=== PATIENT | female | born 1950 | race Caucasian/White ===

== ENCOUNTER 2017-08-04 17:15 | Emergency (ER) | payer OTHER, MEDICARE ==
[2017-08-04] MEDS ORDERED: Morphine 10 MG/ML Syringe IVPUSH ONE ×2 (17:35→20:00)
[2017-08-04] MEDS ORDERED: Ondansetron 4 MG/2 ML SDV IV ONE (17:35)
[2017-08-04] MEDS ORDERED: Diphtheria,Pertussis(Acell),Tetanus Vaccine 0.5 ML SDV IM ONE (17:35)
[2017-08-04] MEDS ORDERED: Sodium Chloride 0.9% 1,000 ML IV ONE (17:35)
[2017-08-04] MEDS ORDERED: Sodium Chloride 0.9% 10 ML Syringe FLUSH PRN (17:36)
[2017-08-04] MEDS ORDERED: Iopamidol 612 MG/ML 50 ML SDV IVPUSH ONE (17:43)
[2017-08-04] MEDS ORDERED: Iopamidol 612 MG/ML 75 ML Bottle IVPUSH ONE (17:43)
[2017-08-04 18:04] LABS: ANION GAP 15.2; CHLORIDE,CL 105 mmol/L (101-111); SODIUM,NA 137 mmol/L (135-145)
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
== END 2017-08-04 20:27 ==
LOC: DL.ED 17:15
DX: S22.41XA Multiple fractures of ribs, right side, initial encounter for closed fracture (principal); S22.20XA Unspecified fracture of sternum, initial encounter for closed fracture; S82.831A Other fracture of upper and lower end of right fibula, initial encounter for closed fracture; S20.219A Contusion of unspecified front wall of thorax, initial encounter; N18.6 End stage renal disease; Z88.5 Allergy status to narcotic agent; Z88.8 Allergy status to other drugs, medicaments and biological substances; Z79.82 Long term (current) use of aspirin; Z79.899 Other long term (current) drug therapy; V43.52XA Car driver injured in collision with other type car in traffic accident, initial encounter
CPT/HCPCS: 36415; 70450; 71260; 72125; 73610; 74177; 80053; 82150; 83690; 84484; 85025; 85610; 85730; 90471; 90715; 93005; 96361; 96374; 96375; 96376; 99285; G0480; J2270; J2405; J7030; Q9967

== ENCOUNTER 2017-08-13 18:19 | Emergency (ER) | payer MEDICARE, OTHER ==
[2017-08-13 18:33] LABS: CHLORIDE,CL 102 mmol/L (101-111); SODIUM,NA 132 mmol/L (135-145)
[2017-08-13 18:34] VITALS: BP 176/83
[2017-08-13] MEDS ORDERED: Acetaminophen/oxyCODONE 325-5 MG Tab PO ONE (18:35)
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
[2017-08-13] MEDS ORDERED: Ondansetron 4 MG Tab.DIS PO ONE (19:42)
[2017-08-13] MEDS ORDERED: Morphine 10 MG/ML Syringe IVPUSH ONE (19:43)
[2017-08-13] MEDS ORDERED: Morphine 10 MG/ML Syringe IM ONE (19:51)
== END 2017-08-13 20:00 ==
LOC: DL.ED 18:19
DX: S22.20XA Unspecified fracture of sternum, initial encounter for closed fracture (principal); S22.41XD Multiple fractures of ribs, right side, subsequent encounter for fracture with routine healing; R79.1 Abnormal coagulation profile; I12.9 Hypertensive chronic kidney disease with stage 1 through stage 4 chronic kidney disease, or unspecified chronic kidney disease; N18.3 Chronic kidney disease, stage 3 (moderate); Z79.82 Long term (current) use of aspirin; Z79.899 Other long term (current) drug therapy; Z88.5 Allergy status to narcotic agent; Z88.8 Allergy status to other drugs, medicaments and biological substances; X58.XXXA Exposure to other specified factors, initial encounter
CPT/HCPCS: 36415; 80053; 85025; 85379; 96372; 99284; A9270; J2270

== ENCOUNTER 2020-03-31 14:10 | Emergency (ER) | payer MEDICARE, OTHER ==
[2020-03-31 14:18] VITALS: BP 155/97; PULSE 81
[2020-03-31] MEDS ORDERED: Sodium Chloride 0.9% 10 ML Syringe FLUSH PRN (14:28)
[2020-03-31 15:35] LABS: ANION GAP 24.7 mEq/L (7-13)
[2020-03-31] MEDS ORDERED: Heparin Sodium 5,000 Units/ML Vial IVPUSH ONE (15:59)
[2020-03-31] MEDS ORDERED: Heparin Sodium/0.45% NaCl 25,000 UNITS/500 ML BAG IV SCH (16:00)
[2020-03-31] MEDS ORDERED: Aspirin 81 MG Tab.Chew PO ONE (16:12)
--- NOTE | 2020-03-31 16:20 | EDM.PDOC ---
Scribed by Marla Machado 03/31/20 1527 for Ramakrishna Han MD ED HPI GENERAL MEDICAL PROBLEM - General Chief Complaint: General Stated Complaint: AMBULANCE Time Seen by Provider: 03/31/20 14:12 Source of Information: Reports: Patient, EMS, EMS Notes Reviewed, RN, RN Notes Reviewed History Limitations: Reports: No Limitations - History of Present Illness INITIAL COMMENTS - FREE TEXT/NARRATIVE: Patient arrives to ED by [facility] stating that she sat in a chair too long. She tried to stand, weak and helped herself to the ground. She was on the ground 5 hours. She has no pain at this time. She did not hit her head. No loss of consciousness or neurologic symptoms. No seizure-like activity. No incontinence or tongue biting. Her friend found her on the ground. She does hemodialysis at home. Her last one was on and is due today. She does produce urine. Denies chest pain, edema, palpitations, or syncope. Onset: Today Duration: Constant Severity: Moderate Improves with: Reports: None Worsens with: Reports: None Associated Symptoms: Reports: No Other Symptoms - Related Data Allergies Allergy/AdvReac Type Severity Reaction Status Date / Time codeine Allergy Airway Verified 03/31/20 14:24 Tightness lisinopril Allergy Cough Verified 03/31/20 14:24 chlorhexadine dressing Allergy Itching Uncoded 03/31/20 14:24 Home Meds: Home Meds Aspirin [Ecotrin] 81 mg PO DAILY 06/06/14 [History] Cyanocobalamin (Vitamin B-12) [Cyanocobalamin Injection] 1,000 mcg IM ASDIRECTED 06/06/14 [History] Folic Acid 1 mg PO Q2D 06/06/14 [History] Lidocaine 5% [Lidoderm 5%] 1 patch TOP DAILY PRN 06/06/14 [History] Pantoprazole [Protonix] 40 mg PO DAILY 06/06/14 [History] Biotin [Bryant Biotin] 5,000 mcg PO DAILY 06/07/14 [History] Metoprolol Tartrate [Lopressor] 25 mg PO DAILY 06/07/14 [History] Quogue-3 Fatty Acids [Quogue-3] 1,000 mg PO DAILY 06/07/14 [History] Acetaminophen [Non-Aspirin Extra Strength] 2 tab PO Q6H PRN 08/13/17 [History] Amitriptyline [Elavil] 2 tab PO BEDTIME 08/13/17 [History] Calcitriol 1.5 mcg PO DAILY 08/13/17 [History] Cyclobenzaprine HCl 1 tab PO Q8H PRN 08/13/17 [History] Docusate Sodium/Sennosides [Senokot-S] 2 tab PO BID PRN 08/13/17 [History] Ferrous Sulfate 1 tab PO DAILY 08/13/17 [History] Gabapentin [Neurontin] 1 cap PO BID 08/13/17 [History] Isosorbide Mononitrate [Imdur] 60 mg PO DAILY 08/13/17 [History] Methylphenidate HCl [Methylphenidate ER] 1 tab PO DAILY 08/13/17 [History] Ranitidine HCl 1 tab PO BID 08/13/17 [History] Red Yeast Rice 2 cap PO DAILY 08/13/17 [History] Ubidecarenone [Co Q-10] 2 cap PO DAILY 08/13/17 [History] Zinc Gluconate-Zinc Picolinate [Zinc] 2 cap PO DAILY 08/13/17 [History] oxyCODONE HCl [Oxycodone HCl] 1 tab PO Q4H PRN 08/13/17 [History] Past Medical History HEENT History: Reports: Other (See Below) Other HEENT History: Benign Cyst -Throat -taken out 1975 Cardiovascular History: Reports: Hypertension Gastrointestinal History: Reports: Other (See Below) Other Gastrointestinal History: Stomach bypass - twice 1981; 1987 Genitourinary History: Reports: Renal Disease, Other (See Below) Other Genitourinary History: Stage 3 kidney disease 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 PROJECT COORDINATOR History: Reports: Other (See Below) Other SENIOR PROJECT 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 Denies: Fever, Chills, Diaphoresis HEENT: Reports: No Symptoms Respiratory: Reports: No Symptoms Cardiovascular: Reports: No Symptoms GI/Abdominal: Reports: No Symptoms : Reports: No Symptoms Musculoskeletal: Reports: No Symptoms Skin: Reports: No Symptoms Neurological: Reports: No Symptoms ED EXAM, GENERAL - Physical Exam Exam: See Below Exam Limited By: No Limitations General Appearance: Alert, WD/WN, No Apparent Distress Eye Exam: Bilateral Eye: EOMI, PERRL Ears: Normal External Exam, Normal Canal Nose: Normal Inspection, Normal Mucosa, No Blood Throat/Mouth: Other (dry mouth) Head: Atraumatic Neck: Normal Inspection, Supple, Non-Tender, Full Range of Motion Respiratory/Chest: No Respiratory Distress, Lungs Clear, Normal Breath Sounds, No Accessory Muscle Use, Chest Non-Tender Cardiovascular: Normal Peripheral Pulses, Regular Rate, Rhythm, No Edema, No Gallop, No JVD, No Murmur, No Rub GI/Abdominal: Normal Bowel Sounds, Soft, Non-Tender, No Organomegaly, No Distention, No Abnormal Bruit, No Mass (Female) Exam: Deferred Rectal (Female) Exam: Deferred Back Exam: No: Paraspinal Tenderness, Vertebral Tenderness Extremities: Normal Inspection Neurological: Alert, Oriented, CN II-XII Intact, Normal Cognition, Normal Gait, Normal Reflexes, No Motor/Sensory Deficits Skin Exam: Erythema (over coccyx. Abrasion on left hip. ) #1 Interpretation EKG Date: 03/31/20 Time: 15:13 Rhythm: Other (sinus rhythm) Rate (Beats/Min): 77 [place]: Normal P-Wave: Present QRS: Other (nonspecific intraventricular conduction delay) ST-T: Normal QT: Normal Course - Vital Signs Last Recorded V/S: Last Vital Signs Temp 97.3 F 03/31/20 14:16 Pulse 81 03/31/20 14:16 Resp 20 03/31/20 14:16 BP 155/97 H 03/31/20 14:16 Pulse Ox 98 03/31/20 14:16 - Orders/Labs/Meds Orders: Active Orders 24 hr Category Date Time Status EKG 12 Lead [EKG Documentation Completion] [RC] STAT Care 03/31/20 14:30 Active Peripheral IV Care [RC] . DIRECTED Care 03/31/20 14:29 Active Chest 1V Frontal [CR] Stat Exams 03/31/20 16:00 Taken UA RFX JULIANA AND CULT IF INDIC [URIN] Stat Lab 03/31/20 14:29 Ordered Heparin Sodium/0.45% NaCl [Heparin 25,000 Units in 1/2 Med 03/31/20 16:00 Active NS 500 ML] 25,000 units in 500 ml IV TITRATE Sodium Chloride 0.9% [Saline Flush] Med 03/31/20 14:28 Active 10 ml FLUSH ASDIRECTED PRN Peripheral IV Insertion Adult [OM.PC] Stat Oth 03/31/20 14:29 Ordered Medication Orders Heparin Sodium/Sodium Chloride (Heparin 25,000 Units In 1/2 Ns 500 Ml) 25,000 units in 500 mls @ 22.11 mls/hr IV TITRATE WILBERT; Protocol Sodium Chloride (Saline Flush) 10 ml FLUSH ASDIRECTED PRN PRN Reason: Keep Vein Open Last Admin: 03/31/20 16:07 Dose: 10 ml Documented by: ABI Labs: Laboratory Tests 03/31/20 03/31/20 03/31/20 Range/Units 14:58 14:58 14:58 WBC 12.8 H (5.0-10.0) 10^3/uL RBC 4.96 (4.2-5.4) 10^6/uL Hgb 14.7 D (12.0-16.0) g/dL Hct 44.9 (37.0-47.0) % MCV 90.5 D (80-100) fL MCH 29.6 (27.0-34.0) pg MCHC 32.7 L (33.0-35.0) g/dL Plt Count 202 D (150-450) 10^3/uL Neut % (Auto) 89.1 H (42.2-75.2) % Lymph % (Auto) 4.0 L (20.5-50.1) % Stanley % (Auto) 6.2 (2-8) % Eos % (Auto) 0.2 L (1.0-3.0) % Baso % (Auto) 0.5 (0.0-1.0) % Sodium 143 (136-145) mmol/L Potassium 3.7 (3.5-5.1) mmol/L Chloride 101 (98-107) mmol/L Carbon Dioxide 21 (21-32) mmol/L Anion Gap 24.7 H (7-13) mEq/L BUN 90 H (7-18) mg/dL Creatinine 7.96 H* (0.55-1.02) mg/dL Est Cr Clr Drug Dosing 5.20 mL/min Estimated GFR (MDRD) 5 BUN/Creatinine Ratio 11.3 (No establ ref range) Glucose 119 H (74-99) mg/dL Lactic Acid 1.5 (0.4-2.0) mmol/L Calcium 9.3 (8.5-10.1) mg/dL Phosphorus 5.5 H (2.6-4.7) mg/dL Magnesium 2.8 H (1.8-2.4) mg/dL Total Bilirubin 0.7 (0.2-1.0) mg/dL AST 38 H (15-37) U/L ALT 36 (14-59) U/L Alkaline Phosphatase 102 (46-116) U/L Creatine Kinase 512 H (16-191) U/L Troponin I 0.705 H* (0.000-0.056) ng/mL B-Natriuretic Peptide 828 H (0-100) pg/ml Total Protein 7.0 (6.4-8.2) g/dL Albumin 4.1 (3.4-5.0) g/dL Globulin 2.9 Albumin/Globulin Ratio 1.4 Meds: Medications Generic Name Dose Route Start Last Admin Trade Name Frejulianna PRN Reason Stop Dose Admin Heparin Sodium/Sodium Chloride 25,000 units in 500 mls @ 22.11 mls/hr 03/31/20 16:00 Heparin 25,000 Units In 1/2 Ns 500 Ml IV TITRATE WILBERT Protocol 12 UNITS/KG/HR Sodium Chloride 10 ml 03/31/20 14:28 03/31/20 16:07 Saline Flush FLUSH 10 ml ASDIRECTED PRN Administration Keep Vein Open Discontinued Medications Generic Name Dose Route Start Last Admin Trade Name Freq PRN Reason Stop Dose Admin Aspirin 324 mg 03/31/20 16:12 Aspirin PO 03/31/20 16:13 ONETIME ONE Heparin Sodium (Porcine) 4,000 units 03/31/20 15:59 03/31/20 16:06 Heparin Sodium IVPUSH 03/31/20 16:00 4,000 units .BOLUS ONE Administration - Re-Assessments/Exams Free Text/Narrative Re-Assessment/Exam: 03/31/20 15:28 I saw and evaluated the patient. Discussed with resident and agree with residents findings and plan as documented in the residents note. Resident does not have EMR access for documentation. Departure - Departure Time of Disposition: 16:18 Disposition: DC/Tfer to Acute Hospital 02 Condition: Fair, Serious Clinical Impression: Non-ST elevated myocardial infarction (non-STEMI), ESRD on hemodialysis, Generalized weakness - Discharge Information *PRESCRIPTION DRUG MONITORING PROGRAM REVIEWED*: Not Applicable *COPY OF PRESCRIPTION DRUG MONITORING REPORT IN PATIENT JOSÉ MIGUEL: Not Applicable Forms: ED Department Discharge, Interfacility Transfer [facility] Sepsis Event Note (ED) - Focused Exam Vital Signs: Vital Signs Temp Pulse Resp BP Pulse Ox 03/31/20 14:16 97.3 F 81 20 155/97 H 98 - My Orders Last 24 Hours: My Active Orders 03/31/20 14:28 Sodium Chloride 0.9% [Saline Flush] 10 ml FLUSH ASDIRECTED PRN 03/31/20 14:29 Peripheral IV Care [RC] . DIRECTED UA RFX JULIANA AND CULT IF INDIC [URIN] Stat Peripheral IV Insertion Adult [OM.PC] Stat 03/31/20 14:30 EKG 12 Lead [EKG Documentation Completion] [RC] STAT 03/31/20 16:00 Chest 1V Frontal [CR] Stat Heparin Sodium/0.45% NaCl [Heparin 25,000 Units in 1/2 NS 500 ML] 25,000 units in 500 ml IV TITRATE - Assessment/Plan Last 24 Hours: My Active Orders 03/31/20 14:28 Sodium Chloride 0.9% [Saline Flush] 10 ml FLUSH ASDIRECTED PRN 03/31/20 14:29 Peripheral IV Care [RC] . DIRECTED UA RFX JULIANA AND CULT IF INDIC [URIN] Stat Peripheral IV Insertion Adult [OM.PC] Stat 03/31/20 14:30 EKG 12 Lead [EKG Documentation Completion] [RC] STAT 03/31/20 16:00 Chest 1V Frontal [CR] Stat Heparin Sodium/0.45% NaCl [Heparin 25,000 Units in 1/2 NS 500 ML] 25,000 units in 500 ml IV TITRATE I have read and agree with the documentation that has been completed regarding this visit. By signing this record, I attest that the documentation was completed in my physical presence and is an accurate record of the encounter.
--- NOTE | 2020-03-31 16:21 | CR ---
PROCEDURE INFORMATION: Exam: XR Chest, 1 View Exam date and time: 03/31/2020 4:04 PM Age: 69 years old Clinical indication: Other: Chest pain TECHNIQUE: Imaging protocol: XR of the chest Views: 1 view. COMPARISON: CT Chest Abdomen Pelvis w Cont 08/04/2017 6:20 PM FINDINGS: Lungs: Unremarkable. No consolidation. Pleural space: Unremarkable. No pleural effusion. No pneumothorax. Heart/Mediastinum: Cardiomegaly. Bones/joints: Unremarkable. Vascular stent observed in the upper left arm. IMPRESSION: Cardiomegaly. No acute findings.
== END 2020-03-31 17:17 ==
LOC: DL.ED 14:10
DX: I21.4 Non-ST elevation (NSTEMI) myocardial infarction (principal); I12.0 Hypertensive chronic kidney disease with stage 5 chronic kidney disease or end stage renal disease; N18.6 End stage renal disease; Z79.82 Long term (current) use of aspirin; Z79.899 Other long term (current) drug therapy; Z99.2 Dependence on renal dialysis; Z88.5 Allergy status to narcotic agent; Z88.8 Allergy status to other drugs, medicaments and biological substances; Z91.048 Other nonmedicinal substance allergy status
CPT/HCPCS: 36410; 36415; 71045; 80053; 82550; 83605; 83735; 83880; 84100; 84484; 85025; 93005; 96374; 99285; A9270; J1644; 93010; 99284

== ENCOUNTER 2021-06-13 15:22 | Emergency (ER) | payer MEDICARE, OTHER ==
[2021-06-13 16:08] VITALS: PULSE 74
[2021-06-13] MEDS ORDERED: amLODIPine 5 MG Tab PO ONE (16:54)
[2021-06-13 17:54] LABS: ANION GAP 14.5 mEq/L (7-13)
[2021-06-13] MEDS ORDERED: Ciprofloxacin 500 MG Tab PO ONE (18:11)
[2021-06-13 18:14] VITALS: BP 152/85
[2021-06-13] MEDS ORDERED: Acetaminophen 500 MG Tab PO ONE (18:23)
== END 2021-06-13 18:34 | disposition home or self-care (01) ==
LOC: DL.ED 15:22
DX: N30.01 Acute cystitis with hematuria (principal); E78.00 Pure hypercholesterolemia, unspecified; I10 Essential (primary) hypertension; I25.2 Old myocardial infarction; K21.9 Gastro-esophageal reflux disease without esophagitis; Z79.899 Other long term (current) drug therapy; Z79.82 Long term (current) use of aspirin
CPT/HCPCS: 36415; 80053; 81001; 83735; 84100; 84443; 85025; 87086; 99283; A9270

== ENCOUNTER 2023-12-24 16:46 | Emergency (ER) | payer MEDICARE, OTHER ==
[2023-12-24] MEDS ORDERED: Sodium Chloride 0.9% 10 ML Syringe FLUSH PRN (16:50)
[2023-12-24 17:01] VITALS: BP 165/55; PULSE 75
[2023-12-24 17:35] LABS: BASOPHILS PERCENT AUTO 0.3 % (0.0-1.0); EOSINOPHILS PERCENT AUTO 0.1 % (1.0-3.0); HEMATOCRIT 35.4 % (37.0-47.0); HEMOGLOBIN 10.9 g/dL (12.0-16.0); LYMPHOCYTES PERCENT AUTO 3.8 % (20.5-50.1); MEAN CORPUSCULAR HEMOGLOBIN 30.6 pg (27.0-34.0); MEAN CORPUSCULAR HGB CONC 30.8 g/dL (33.0-35.0); MEAN CORPUSCULAR VOLUME 99.4 fL (80-100); NEUTROPHILS PERCENT AUTO 91.8 % (42.2-75.2); PLATELET COUNT,PLT 148 10^3/uL (150-450); RED BLOOD CELL COUNT 3.56 10^6/uL (4.2-5.4); WHITE BLOOD CELL COUNT,WBC 7.7 10^3/uL (5.0-10.0)
[2023-12-24 17:57] LABS: PROTHROMBIN TIME 10.2 SEC (9.0-12.0)
[2023-12-24 17:59] LABS: A/G RATIO 1.2; ALANINE AMINOTRANSFERASE,ALT 21 U/L (14-59); ALBUMIN 3.5 g/dL (3.4-5.0); ALKALINE PHOSPHATASE 74 U/L (46-116); ANION GAP 17.5 mEq/L (7-13); ASPARTATE AMNIOTRANSFERASE,AST 18 U/L (15-37); BILIRUBIN TOTAL 0.5 mg/dL (0.2-1.0); BLOOD UREA NITROGEN,BUN 78 mg/dL (7-18); BUN/CREATININE RATIO 14.2 (No establ ref range); CALCIUM 7.8 mg/dL (8.5-10.1); CARBON DIOXIDE,CO2 24 mmol/L (21-32); CHLORIDE,CL 101 mmol/L (98-107); EST CRCL DRUG DOSING (CG) 7.11 mL/min; GLUCOSE RANDOM 152 mg/dL (70-99); MAGNESIUM 2.7 mg/dL (1.8-2.4); POTASSIUM,K 4.5 mmol/L (3.5-5.1); PROTEIN TOTAL,TP 6.4 g/dL (6.4-8.2); SODIUM,NA 138 mmol/L (136-145)
[2023-12-24 18:06] LABS: CREATININE 5.49 mg/dL (0.55-1.02); ESTIMATED GFR 8 mL/min (>=60)
[2023-12-24 18:07] LABS: C-REACTIVE PROTEIN < 0.50 ng/dL (<=0.50); ETHANOL BLOOD MEDICAL < 3 mg/dL (0)
[2023-12-24 19:02] LABS: APPEARANCE,URINE SLIGHTLY CLOUDY (CLEAR); COLOR,URINE YELLOW (YELLOW)
[2023-12-24 19:03] LABS: BILIRUBIN,URINE NEGATIVE (NEGATIVE); GLUCOSE,URINE NEGATIVE (NEGATIVE); KETONES,URINE NEGATIVE (NEGATIVE); PROTEIN,URINE 100 (NEGATIVE)
[2023-12-24 19:04] LABS: LEUKOCYTE ESTERASE,URINE LARGE (NEGATIVE); NITRITE,URINE NEGATIVE (NEGATIVE); OCCULT BLOOD,URINE TRACE-INTACT (NEGATIVE); UROBILINOGEN,URINE 0.2 mg/dL (0.2-1.0)
[2023-12-24] MEDS: cefTRIAXone 1 GM Vial IVPUSH ONE (19:27)
[2023-12-24] MEDS: Nitrofurantoin Monohydrate/Macrocrystalline 100 MG Cap PO ONE (19:27)
== END 2023-12-24 19:44 | disposition home or self-care (01) ==
LOC: DL.ED 16:46
DX: N39.0 Urinary tract infection, site not specified (principal); I12.0 Hypertensive chronic kidney disease with stage 5 chronic kidney disease or end stage renal disease; N18.6 End stage renal disease; E78.00 Pure hypercholesterolemia, unspecified; I25.2 Old myocardial infarction; Z90.710 Acquired absence of both cervix and uterus; Z79.899 Other long term (current) drug therapy; Z88.5 Allergy status to narcotic agent; Z88.8 Allergy status to other drugs, medicaments and biological substances; Z91.048 Other nonmedicinal substance allergy status
CPT/HCPCS: 36415; 80053; 80307; 81003; 83605; 83735; 84484; 85025; 85610; 85730; 86140; 87040; 93005; 96374; 99285; A9270; J0696